=== PATIENT | female | born 1990 | race Caucasian/White ===

== ENCOUNTER 2019-02-03 12:58 | Outpatient (CLI) | payer OTHER | END 2019-02-03 12:59 | disposition home or self-care (01) | LOC: SC 12:58 | PROVIDERS: ATTEND Internal Medicine Pulmonary Disease | DX: G47.10 Hypersomnia, unspecified (principal); R06.83 Snoring; G47.8 Other sleep disorders; E66.9 Obesity, unspecified; Z68.38 Body mass index [BMI] 38.0-38.9, adult | CPT/HCPCS: 99203; 99212 ==

== ENCOUNTER 2019-02-21 20:37 | Outpatient (CLI) | payer OTHER | END 2019-02-21 20:38 | disposition home or self-care (01) | LOC: SC 20:37 | PROVIDERS: ATTEND Internal Medicine Pulmonary Disease | DX: G47.33 Obstructive sleep apnea (adult) (pediatric) (principal) | CPT/HCPCS: 95810 ==

== ENCOUNTER 2019-05-13 08:13 | Emergency (ER) | payer OTHER ==
[2019-05-13 08:58] LABS: BILIRUBIN,URINE NEGATIVE (NEGATIVE); GLUCOSE, URINE (UA) NEGATIVE (NEGATIVE); KETONES,URINE (UA) NEGATIVE (NEGATIVE); LEUKOCYTE ESTERASE, URINE NEGATIVE (NEGATIVE); NITRITE,URINE NEGATIVE (NEGATIVE); OCCULT BLOOD,URINE NEGATIVE (NEGATIVE); PROTEIN,URINE NEGATIVE (NEGATIVE); UROBILINOGEN,URINE 0.2 (NORMAL) E.U./dL (NORMAL)
[2019-05-13 09:00] LABS: CLARITY,URINE CLEAR (CLEAR)
[2019-05-13 09:01] LABS: HCG UR QUAL NEGATIVE
[2019-05-13 09:16] LABS: BASOPHILS % (AUTO) 0.7 %; EOSINOPHILS # (AUTO) 0.1 10^3/uL (0.0-0.7); EOSINOPHILS % (AUTO) 2.3 %; LYMPHOCYTES # (AUTO) 1.8 10^3/uL (1.5-3.5); LYMPHOCYTES % (AUTO) 30.6 %; MEAN CORPUSCULAR HEMOGLOBIN 28.3 pg (27.0-31.0); MEAN CORPUSCULAR HGB CONC 31.6 g/dL (32.0-36.0); MEAN CORPUSCULAR VOLUME 89.7 fL (81.0-99.0); MEAN PLATELET VOLUME 9.8 fL (7.9-10.8); MONOCYTES # (AUTO) 0.3 10^3/uL (0.0-1.0); MONOCYTES % (AUTO) 4.3 %; NEUTROPHILS # (AUTO) 3.6 10^3/uL (1.5-6.6); NEUTROPHILS % (AUTO) 61.9 %; PLT - PLATELET COUNT 265 10^3/uL (130-450); RED BLOOD COUNT 4.94 10^6/uL (4.20-5.40); RED CELL DISTRIBUTION WIDTH 12.9 % (12.0-15.0); WHITE BLOOD COUNT 5.8 x10^3/uL (4.8-10.8)
[2019-05-13 09:30] LABS: ALBUMIN/GLOBULIN RATIO 1.1 (1.0-2.2); BILIRUBIN,TOTAL 0.7 mg/dL (0.2-1.0); CALCIUM 9.3 mg/dL (8.5-10.3); CREATININE 0.8 mg/dL (0.4-1.0); TOTAL PROTEIN 7.7 g/dL (6.7-8.2)
--- NOTE | 2019-05-13 09:40 | ED Physician Documentation ---
PD HPI ABD PAIN - Stated complaint Stated Complaint: RT ABD PX - Chief complaint Chief Complaint: Abd Pain - History obtained from History obtained from: Patient - History of Present Illness Timing - onset: How many weeks ago (1) Timing - details: Waxing and waning Quality: Aching, Dull Location: RUQ Associated symptoms: No: Fever, Nausea, Vomiting Recently seen: Clinic (One week ago.) - Additional information Additional information: The patient is a 29-year-old female who presents with right upper quadrant abdominal pain. The pain started about 1 week ago and has been waxing and waning since that time. She describes it as a dull ache with intermittent waves of sharp pain. She denies associated nausea, vomiting, fever, cough, or shortness of breath. [place] underwent ultrasound of the right upper quadrant. Gallbladder was normal, but she was told there was a liver lesion. Further imaging study was advised, but the patient states it cannot be done until 4 days from now through the [facility], and she feels that she cannot wait that long. Review of Systems Constitutional: denies: Fever Nose: denies: Congestion Throat: denies: Sore throat Cardiac: denies: Chest pain / pressure Respiratory: denies: Dyspnea, Cough GI: reports: Abdominal Pain. denies: Nausea, Vomiting : reports: LMP (2 weeks ago.). denies: Dysuria Skin: denies: Rash Musculoskeletal: denies: Back pain Neurologic: denies: Focal weakness, Numbness, Headache PD PAST MEDICAL HISTORY - Past Medical History Past Medical History: No Cardiovascular: None Respiratory: None Neuro: None Endocrine/Autoimmune: None GI: None NEUROLOGY PHYSICIAN ASSISTANT: None : None HEENT: None Psych: None Musculoskeletal: None Derm: None - Past Surgical History Past Surgical History: No - Present Medications Home Medications: Ambulatory Orders Medication Instructions Recorded Confirmed Levonorgestrel-Ethin Estradiol 1 each PO DAILY 05/13/19 05/13/19 [Kalpesh] metFORMIN [Glucophage] 500 mg PO ONCE 05/13/19 05/13/19 raNITIdine HCl [Ranitidine HCl] 150 mg PO BID #30 tablet 05/13/19 - Allergies Allergies/Adverse Reactions: Allergies Allergy/AdvReac Type Severity Reaction Status Date / Time codeine Allergy Rash Verified 05/13/19 08:40 gluten Allergy Cramps Verified 05/13/19 08:40 - Social History Does the pt smoke?: No Smoking Status: Never smoker Does the pt drink ETOH?: Yes Does the pt have substance abuse?: No - Immunizations Immunizations are current?: Yes - POLST Patient has POLST: No PD ED PE NORMAL - Vitals Vital signs reviewed: Yes (Borderline systolic hypertension initially.) - General General: Alert and oriented X 3, Well developed/nourished - HEENT HEENT: Atraumatic, Moist mucous membranes, Pharynx benign - Neck Neck: No adenopathy, No JVD - Cardiac Cardiac: RRR, No murmur - Respiratory Respiratory: No respiratory distress, Clear bilaterally - Abdomen Abdomen: Normal bowel sounds, Soft, Other (Mild tenderness to palpation in the right upper quadrant, without rebound or guarding.) - Back Back: No CVA TTP - Derm Derm: No rash - Extremities Extremities: No edema, No calf tenderness / cord - Neuro Neuro: Alert and oriented X 3, No motor deficit, Normal speech Results - Vitals Vitals: Vital Signs - 24 hr 05/13/19 05/13/19 08:37 11:52 Temperature 36.0 C L Heart Rate 98 64 Respiratory 16 12 Rate Blood Pressure 141/88 H 119/86 H O2 Saturation 97 100 Oxygen O2 Source Room air - Labs Labs: Laboratory Tests 05/13/19 05/13/19 05/13/19 08:50 08:50 09:10 WBC 5.8 RBC 4.94 Hgb 14.0 Hct 44.3 MCV 89.7 MCH 28.3 MCHC 31.6 L RDW 12.9 Plt Count 265 MPV 9.8 Neut # (Auto) 3.6 Lymph # (Auto) 1.8 [place] # (Auto) 0.3 Eos # (Auto) 0.1 Baso # (Auto) 0.0 Absolute Nucleated RBC 0.00 Nucleated RBC % 0.0 Sodium Potassium Chloride Carbon Dioxide Anion Gap BUN Creatinine Estimated GFR (MDRD) Glucose Calcium Total Bilirubin AST ALT Alkaline Phosphatase Total Protein Albumin Globulin Albumin/Globulin Ratio Lipase Urine Color YELLOW Urine Clarity CLEAR Urine pH 6.0 Ur Specific [place] 1.025 1.025 Urine Protein NEGATIVE Urine Glucose (UA) NEGATIVE Urine Ketones NEGATIVE Urine Occult Blood NEGATIVE Urine Nitrite NEGATIVE Urine Bilirubin NEGATIVE Urine Urobilinogen 0.2 (NORMAL) Ur Leukocyte Esterase NEGATIVE Ur Microscopic Review NOT INDICATED Urine Culture Comments NOT INDICATED Urine HCG, Qual NEGATIVE 05/13/19 09:10 WBC RBC Hgb Hct MCV MCH MCHC RDW Plt Count MPV Neut # (Auto) Lymph # (Auto) [place] # (Auto) Eos # (Auto) Baso # (Auto) Absolute Nucleated RBC Nucleated RBC % Sodium 136 Potassium 3.4 L Chloride 98 L Carbon Dioxide 24 Anion Gap 14.0 H BUN 12 Creatinine 0.8 Estimated GFR (MDRD) 85 L Glucose 194 H Calcium 9.3 Total Bilirubin 0.7 AST 23 ALT 23 Alkaline Phosphatase 69 Total Protein 7.7 Albumin 4.0 Globulin 3.7 Albumin/Globulin Ratio 1.1 Lipase 27 Urine Color Urine Clarity Urine pH Ur Specific [place] Urine Protein Urine Glucose (UA) Urine Ketones Urine Occult Blood Urine Nitrite Urine Bilirubin Urine Urobilinogen Ur Leukocyte Esterase Ur Microscopic Review Urine Culture Comments Urine HCG, Qual - Rads (name of study) CT abd/pelvis Radiology: Prelim report reviewed, EMP read contemporaneously, See rad report (No explanation for right upper quadrant pain. Normal liver and gallbladder. Incidental 3 cm right adnexal cyst, likely physiologic.) PD MEDICAL DECISION MAKING - ED course Complexity details: reviewed results, re-evaluated patient, considered differential, d/w patient ED course: The underlying cause of the patient's right upper quadrant abdominal pain is uncertain at this time. There is no evidence of gallbladder disease or liver lesion on CT scan of the abdomen and pelvis. The CT scan does reveal a likely physiologic 3 cm right adnexal cyst. I suspect the patient's upper abdominal discomfort is caused by acid peptic disease. I am unable to explain the abnormal ultrasound report that was given to the patient earlier in the week. Treatment in the emergency department included administration of Maalox 30 mL orally. She is being discharged with prescription for ranitidine. I discussed with her the results of her CT scan and laboratory work-up, outpatient treatment and follow-up, as well as potentially worrisome signs or symptoms that should prompt reevaluation in the emergency department. Departure - Departure Disposition: 01 Home, Self Care Clinical Impression: Abdominal pain Qualifiers: Abdominal location: upper abdomen, unspecified Qualified Code(s): R10.10 - Upper abdominal pain, unspecified Condition: Stable Health Concerns: abdominal pain Plan of Treatment: Ranitidine, liquid antacid. Care Goals: Resolution of pain. Assessment: see above Instructions: ED Abdominal Pain Unkn Cause, ED PUD Vs Gastritis Follow-Up: LILIANA FERNANDEZ [Primary Care Provider] - Prescriptions: raNITIdine HCl [Ranitidine HCl] 150 mg PO BID #30 tablet Comments: Minimize coffee, matilde, alcohol, and chocolate. Take ranitidine twice daily as prescribed. You can use liquid antacid, such as Maalox or Mylanta, if you develop recurrent symptoms. Follow-up with your primary physician within 2 weeks. Call to schedule appointment. Return to the emergency department if you develop increasing abdominal pain, persistent vomiting, or otherwise worsening symptoms. Discharge Date/Time: 05/13/19 12:05
[2019-05-13] MEDS ORDERED: IOVERSOL 320 100 ML VIAL IVP ONE ×2 (09:49→17:50)
--- NOTE | 2019-05-13 10:45 | CT Report ---
Reason: RUQ pain; U/S 1 wk ago revealed liver lesion. Procedure Date: 05/13/2019 Accession Number: [id number] / [id number] Procedure: CT - Abdomen/Pelvis W CPT Code: FULL RESULT: EXAM: CT ABDOMEN AND PELVIS EXAM DATE: 05/13/2019 10:18 AM. CLINICAL HISTORY: Right upper quadrant pain COMPARISONS: None. TECHNIQUE: Routine helical CT imaging was performed through the abdomen and pelvis. IV contrast: 100 cc Optiray 320. Enteric contrast: No. Reconstructions: Coronal and sagittal. In accordance with CT protocol optimization, one or more of the following dose reduction techniques were utilized for this exam: automated exposure control, adjustment of mA and/or KV based on patient size, or use of iterative reconstructive technique. FINDINGS: Lung Bases: Trace bibasilar atelectasis. Liver: Normal. No masses. Gallbladder/Bile Ducts: Unremarkable. Spleen: Normal. Pancreas: Normal. Adrenal Glands: Normal. Kidneys: Normal. No masses or hydronephrosis. Peritoneal Cavity/Bowel: Normal. No free fluid, free air or adenopathy. No masses or acute inflammatory process. Pelvic Organs: Right ovarian cyst measuring 3 cm, likely physiologic. The pelvic structures are otherwise unremarkable. Vasculature: No aneurysms or other significant abnormality. Bones: No significant abnormality. IMPRESSION: 1. No explanation for right upper quadrant pain. Normal liver and gallbladder. 2. Incidental 3 cm right adnexal cyst, likely physiologic. RADIA
[2019-05-13] MEDS ORDERED: MAG HYDROX/AL HYDROX/SIMETH 30 ML UDC PO STA (11:37)
[2019-05-13 11:55] VITALS: BP 119/86
== END 2019-05-13 12:05 | disposition home or self-care (01) ==
LOC: ED 08:13
DX: R10.11 Right upper quadrant pain (principal)
CPT/HCPCS: 36415; 74177; 80053; 81003; 81025; 83690; 85025; 99283; A9270; Q9967; 81001; 87086

== ENCOUNTER 2019-05-19 13:41 | Outpatient (CLI) | payer OTHER | END 2019-05-19 13:42 | disposition home or self-care (01) | LOC: SC 13:41 | PROVIDERS: ATTEND Nurse Practitioner Family | DX: G47.33 Obstructive sleep apnea (adult) (pediatric) (principal) | CPT/HCPCS: 99212; 99214 ==

== ENCOUNTER 2019-06-01 13:17 | Outpatient (CLI) | payer OTHER ==
[2019-06-01] MEDS ORDERED: SINCALIDE 5 MCG VIAL ONE (14:38)
[2019-06-01] MEDS ORDERED: SINCALIDE IV ONE (16:19)
[2019-06-01] MEDS ORDERED: SODIUM CHLORIDE 0.9% IV ONE (16:19)
--- NOTE | 2019-06-01 17:02 | Nuclear Medicine Report ---
Reason: RIGHT UPPER QUADRANT PAIN Procedure Date: 06/01/2019 Accession Number: [id number] / [id number] Procedure: NM - Hepatobiliary HIDA w/ Rx CPT Code: FULL RESULT: EXAM: HEPATOBILIARY SCAN WITH CCK/KINEVAC ADMINISTRATION EXAM DATE: 06/01/2019 04:08 PM. CLINICAL HISTORY: RIGHT UPPER QUADRANT PAIN. COMPARISON: ABDOMEN/PELVIS W/ 05/13/2019 10:10 AM. TECHNIQUE: Following the intravenous administration of 5.5 mCi of Tc99m Mebrofenin, a hepatobiliary scan was done centered on the liver and gallbladder in multiple sequential images and projections. Following the intravenous administration of 1.95 mcg of CCK/ Kinevac over the course of approximately 60 minutes, dynamic imaging was done and the gallbladder ejection fraction was calculated. FINDINGS: Normal extraction of tracer from the blood pool indicating normal hepatocellular function. The liver size and shape is grossly within normal limits. There is activity visualized within the bile ducts, gallbladder, and small bowel during the first hour. With CCK administration, the gallbladder demonstrates an effective contraction. The gallbladder ejection fraction is calculated to be 80%, well above the lower limit of normal of 38% for a 60-minute injection. The patient did not report symptoms after CCK administration. No evidence of enteric reflux into the stomach. No significant collection of tracer remaining in the common bile duct by the end of the study. IMPRESSION: 1. Patent cystic duct. 2. Patent common bile duct. 3. Negative for acute or chronic cholecystitis. 4. No enterogastric bile reflux. 5. Gallbladder ejection fraction of 80%. RADIA
== END 2019-06-01 13:18 | disposition home or self-care (01) ==
LOC: DI 13:17
PROVIDERS: ATTEND General Practice
DX: R10.11 Right upper quadrant pain (principal)
CPT/HCPCS: 78227; J7040